=== PATIENT | female | born 1955 | race Caucasian/White ===

== ENCOUNTER 2017-05-18 18:27 | Emergency (ER) | payer SELFPAY ==
[2017-05-18 19:06] VITALS: BP 175/94; PULSE 81; TEMP 98.5; BMI 32.1
--- NOTE | 2017-05-18 20:14 | PDOC ---
History of Present Illness <BergerRonna - Last Filed: 05/18/17 21:16> - General History Source: Patient Exam Limitations: No Limitations - History of Present Illness Initial Comments: 05/18/17 21:18 The patient is a 61 year old female with a significant PMH of hypertension who presents to the emergency department with flu-like symptoms for the past two weeks. The patient reports she has been experiencing body aches, cough and sore throat over the past two weeks with no improvement in her symptoms. The patient notes she had one episode of non-bloody, non-bilious vomit yesterday prompting her visit to the ER today. The patient states she last took Motrin this morning. 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 The patient denies chest pain, shortness of breath, headache and dizziness. Denies fever, chills, nausea, vomit, diarrhea and constipation. Denies dysuria, frequency, urgency and hematuria. Allergies: NKA Past surgical history: None reported. Social history: No reported alcohol, drug, or cigarette use. <Maida Reid - Last Filed: 05/18/17 21:26> - General Chief Complaint: Cold Symptoms Stated Complaint: COLD SYMPTOMS Time Seen by Provider: 05/18/17 20:07 Past History - Past Medical History COPD: No HTN: Yes - Surgical History Cholecystectomy: Yes - Suicide/Smoking/Psychosocial Hx Smoking History: Never smoked <Ronna Berger - Last Filed: 05/18/17 21:16> <Maida Reid - Last Filed: 05/18/17 21:26> - Past Medical History Allergies/Adverse Reactions: Allergies Allergy/AdvReac Type Severity Reaction Status Date / Time No Known Allergies Allergy Verified 05/18/17 19:02 Home Medications: Ambulatory Orders Oseltamivir Phosphate [Tamiflu -] 75 mg PO BID #9 capsule 05/18/17 Oseltamivir Phosphate [Tamiflu -] 75 mg PO BID #9 capsule 05/18/17 Review of Systems - Review of Systems Able to Perform ROS?: Yes Comments:: 05/18/17 21:23 GENERAL/CONSTITUTIONAL: (+) Body aches. No fever or chills. HEAD, EYES, EARS, NOSE AND THROAT: No change in vision. No ear pain or discharge. No sore throat. CARDIOVASCULAR: No chest pain or shortness of breath. RESPIRATORY: (+) Cough. (+) Sore throat. No wheezing or hemoptysis. GASTROINTESTINAL: No nausea, vomiting, diarrhea or constipation. GENITOURINARY: No dysuria, frequency, or change in urination. MUSCULOSKELETAL: No joint or muscle swelling or pain. No neck or back pain. SKIN: No rash NEUROLOGIC: No headache, vertigo, loss of consciousness, or change in strength/ sensation. ENDOCRINE: No increased thirst. No abnormal weight change. HEMATOLOGIC/LYMPHATIC: No anemia, easy bleeding, or history of blood clots. ALLERGIC/IMMUNOLOGIC: No hives or skin allergy. <Maida Reid - Last Filed: 05/18/17 21:26> *Physical Exam - Vital Signs Last Vital Signs Temp Pulse Resp BP Pulse Ox 98.5 F 81 19 175/94 98 05/18/17 19:02 05/18/17 19:02 05/18/17 19:02 05/18/17 19:02 05/18/17 19:02 <Ronna Berger - Last Filed: 05/18/17 21:16> - Vital Signs Last Vital Signs Temp Pulse Resp BP Pulse Ox 98.5 F 81 19 175/94 98 05/18/17 19:02 05/18/17 19:02 05/18/17 19:02 05/18/17 19:02 05/18/17 19:02 - Physical Exam Comments: 05/18/17 21:25 GENERAL: Awake, alert, and fully oriented, in no acute distress HEAD: No signs of trauma EYES: PERRLA, EOMI, sclera anicteric, conjunctiva clear ENT: Auricles normal inspection, hearing grossly normal, nares patent, oropharynx clear without exudates. Moist mucosa NECK: Normal ROM, supple, no lymphadenopathy, JVD, or masses LUNGS: Breath sounds equal, clear to auscultation bilaterally. No wheezes, and no crackles HEART: Regular rate and rhythm, normal S1 and S2, no murmurs, rubs or gallops ABDOMEN: Soft, nontender, normoactive bowel sounds. No guarding, no rebound. No masses EXTREMITIES: Normal range of motion, no edema. No clubbing or cyanosis. No cords, erythema, or tenderness NEUROLOGICAL: Cranial nerves II through XII grossly intact. Normal speech, normal gait SKIN: Warm, Dry, normal turgor, no rashes or lesions noted. <Maida Reid - Last Filed: 05/18/17 21:26> ED Treatment Course - Medications Given in the ED: ED Medications Discontinued Medications Generic Name Dose Route Start Last Admin Trade Name Robbie PRN Reason Stop Dose Admin Oseltamivir Phosphate 75 mg 05/18/17 20:21 05/18/17 20:34 Tamiflu - PO 05/18/17 20:22 75 mg ONCE ONE Administration <Maida Reid - Last Filed: 05/18/17 21:26> Medical Decision Making - Medical Decision Making 05/18/17 20:56 Pt comes with a flu that is not remitting. Today she had a couple of episodes of vomiting. Pt has slight sore throat, but throat appears normal and she has no fever or chills. She has clear sounding lungs. Pt had a CXR that appears clear to me; atelectasis at the right base. Pt will be sent home with tamiflu, as we cannot test her for the flu (lab is out of reagent) Pt will be given a few days off of work. <Ronna Berger - Last Filed: 05/18/17 21:16> *DC/Admit/Observation/Transfer - Discharge Dispostion Admit: No <Ronna Berger - Last Filed: 05/18/17 21:16> - Attestations Scribe Attestion: 05/18/17 21:26 Documentation prepared by Maida Reid, acting as medical sales specialist for Ronna Berger MD. <Maida Reid - Last Filed: 05/18/17 21:26> Diagnosis at time of Disposition: Influenza, Viral respiratory illness - Discharge Dispostion Disposition: HOME Condition at time of disposition: Stable - Prescriptions Prescriptions: Oseltamivir Phosphate [Tamiflu -] 75 mg PO BID #9 capsule Oseltamivir Phosphate [Tamiflu -] 75 mg PO BID #9 capsule - Patient Instructions Printed Discharge Instructions: How to Avoid a Cold or Flu, DI for Viral Upper Respiratory Infection -- Adult - Post Discharge Activity Forms/Work/School Notes: Back to Work
[2017-05-18] MEDS ORDERED: OSELTAMIVIR PHOSPHATE 75 MG CAPSULE PO ONE (20:21)
[2017-05-18] MEDS ORDERED: OSELTAMIVIR PHOSPHATE 75 MG CAPSULE ONE (20:31)
== END 2017-05-18 21:17 | disposition home or self-care (01) ==
LOC: JER 18:27
DX: J11.1 Influenza due to unidentified influenza virus with other respiratory manifestations (principal); I10 Essential (primary) hypertension
CPT/HCPCS: 71046-TC-FY; 99281-25